=== PATIENT | male | born 1935 | race Caucasian/White ===

== ENCOUNTER 2016-10-30 11:04 | Inpatient (IN) | payer MEDICARE, OTHER ==
[~2016-10-30] VITALS: Ht 190.5 cm; Wt 82.2 kg
[~2016-10-30 11:04] MED LIST: ARIP2TAB PO; ATOR40TA PO; CALC400T6 PO; CHOL10002 PO; CIPR2.5D EACHEYE; CLON-364 PO; CLON0.5T PO; DILT180C53 PO; DILT360C10 PO; DULO30CA2 PO; DULO60CA7 PO; FERR325T20 PO; FISH1CAP PO; FURO-92 PO; FURO-93 PO; HYDR25TA6 PO; KETO5DRO3 LEFTEYE; LAMO150T3 PO; LAMO200T PO; LEVO125T5 PO; LISI5TAB7 PO; MULT-257 PO; POTA10TA90 PO; POTA20PA PO; SILD100T PO; TAMS-11 PO; TERA2CAP3 PO; WARF2.5T73 PO
[2016-10-30] MEDS ORDERED: SODIUM CHLORIDE FLUSH 10ML SYR IVF ONE (12:30)
[2016-10-30 12:37] LABS: ASPARTATE AMINO TRANSFERASE 9 U/L (15-37); BLOOD UREA NITROGEN 74 mg/dL (7-18)
[2016-10-30] MEDS ORDERED: SPIR25TA3 PO (12:42)
[2016-10-30] MEDS ORDERED: TIZA4CAP PO (12:42)
[2016-10-30] MEDS ORDERED: OXYC-229 PO (12:42)
[2016-10-30] MEDS ORDERED: RIVA15TA PO (12:42)
[2016-10-30 12:46] LABS: IS PT STATUS REG ER OR PRE ER? YES
[2016-10-30] MEDS ORDERED: SODIUM CHLORIDE FLUSH 10ML SYR IVF PRN (13:30)
[2016-10-30 15:27] VITALS: BP 117/68
[2016-10-30] MEDS ORDERED: SPIRONOLACTONE 25 MG TABLET PO PRN (15:30)
[2016-10-30] MEDS: OXYcodone/APAP 10/325MG TABLET PO SCH ×2 (15:44→20:22)
[2016-10-30] MEDS ORDERED: ACETAMINOPHEN 325 MG TABLET PO PRN (16:00)
[2016-10-30 16:24] LABS: ABG COLLECTION SITE RIGHT RADIAL
[2016-10-30 16:26] LABS: COLLATERAL CIRCULATION TESTING NORMAL
[2016-10-30 16:39] LABS: IS PT STATUS REG ER OR PRE ER? NO
[2016-10-30 19:50] VITALS: BP 130/78
[2016-10-30] MEDS: ATORVASTATIN 40 MG TABLET PO SCH (20:22)
[2016-10-30 21:44] LABS: IS PT STATUS REG ER OR PRE ER? NO
[2016-10-31 03:40] VITALS: BP 143/82
[2016-10-31] MEDS: LEVOTHYROXINE 125 MCG TABLET PO SCH (05:43)
[2016-10-31] MEDS: OXYcodone/APAP 10/325MG TABLET PO SCH ×2 (05:43→12:00)
[2016-10-31 06:26] LABS: ASPARTATE AMINO TRANSFERASE 32 U/L (15-37); BLOOD UREA NITROGEN 72 mg/dL (7-18)
[2016-10-31 08:24] VITALS: BP 140/85
[2016-10-31] MEDS: LAMOTRIGINE 200 MG TABLET PO SCH (08:48)
[2016-10-31] MEDS: DILTIAZEM CD 180 MG CAP.ER.24H PO SCH (08:49)
[2016-10-31] MEDS: MULTIVITAMIN 1 TABLET PO SCH (08:49)
[2016-10-31] MEDS: ARIPIPRAZOLE 2 MG TABLET PO SCH (08:50)
[2016-10-31] MEDS: CHOLECALCIFEROL 1,000 UNIT TABLET PO SCH (08:51)
[2016-10-31] MEDS: DULOXETINE 30 MG CAPSULE.DR PO SCH (08:51)
[2016-10-31] MEDS: RIVAROXABAN 15 MG TABLET PO SCH (08:51)
[2016-10-31] MEDS ORDERED: POTASSIUM CHLORIDE 20 MEQ PACKET PO SCH (09:00)
[2016-10-31 09:19] LABS: BLOOD UREA NITROGEN 66 mg/dL (7-18)
[2016-10-31 12:53] VITALS: BP 131/78
[2016-10-31] MEDS ORDERED: FUROSEMIDE 40 MG/4 ML IV ONE (13:00)
[2016-10-31 18:51] VITALS: BP 27/79
[2016-10-31] MEDS: OXYcodone/APAP 10/325MG TABLET PO PRN (22:47)
[2016-10-31] MEDS: ATORVASTATIN 40 MG TABLET PO SCH (22:47)
[2016-11-01 01:27] VITALS: BP 103/58
[2016-11-01 05:01] LABS: BLOOD UREA NITROGEN 60 mg/dL (7-18)
[2016-11-01] MEDS: LEVOTHYROXINE 125 MCG TABLET PO SCH (06:19)
[2016-11-01 06:52] LABS: PTH INTACT INTERPRETATION ** Comment **
[2016-11-01 07:24] LABS: PARATHYROID HORMONE INTACT 52.7 pg/mL (14-72)
[2016-11-01 07:38] VITALS: BP 138/84
[2016-11-01] MEDS: CHOLECALCIFEROL 1,000 UNIT TABLET PO SCH (07:58)
[2016-11-01] MEDS: ARIPIPRAZOLE 2 MG TABLET PO SCH (07:58)
[2016-11-01] MEDS: DILTIAZEM CD 180 MG CAP.ER.24H PO SCH (07:58)
[2016-11-01] MEDS: OXYcodone/APAP 10/325MG TABLET PO PRN (07:58)
[2016-11-01] MEDS: DULOXETINE 30 MG CAPSULE.DR PO SCH (07:58)
[2016-11-01] MEDS: RIVAROXABAN 15 MG TABLET PO SCH (07:58)
[2016-11-01] MEDS: LAMOTRIGINE 200 MG TABLET PO SCH (07:58)
[2016-11-01] MEDS: MULTIVITAMIN 1 TABLET PO SCH (07:58)
[2016-11-01] MEDS ORDERED: FUROSEMIDE 40 MG TABLET PO SCH (09:00)
[2016-11-01 12:20] VITALS: BP 126/80
== END 2016-11-01 17:39 | disposition home or self-care (01) | DRG 308 ==
LOC: ED 13:28 → EDIP 13:29 → ED 13:47 → 4WST 14:40
DX: I48.2 Chronic atrial fibrillation (principal); J81.0 Acute pulmonary edema; I26.99 Other pulmonary embolism without acute cor pulmonale; N18.4 Chronic kidney disease, stage 4 (severe); D68.69 Other thrombophilia; N17.9 Acute kidney failure, unspecified; J90 Pleural effusion, not elsewhere classified; I48.92 Unspecified atrial flutter; R91.8 Other nonspecific abnormal finding of lung field; E87.5 Hyperkalemia; D50.9 Iron deficiency anemia, unspecified; E03.9 Hypothyroidism, unspecified; E78.00 Pure hypercholesterolemia, unspecified; I12.9 Hypertensive chronic kidney disease with stage 1 through stage 4 chronic kidney disease, or unspecified chronic kidney disease; I71.4 Abdominal aortic aneurysm, without rupture; F31.9 Bipolar disorder, unspecified; F41.9 Anxiety disorder, unspecified; G47.00 Insomnia, unspecified; H35.30 Unspecified macular degeneration; I25.10 Atherosclerotic heart disease of native coronary artery without angina pectoris; I73.9 Peripheral vascular disease, unspecified; M19.90 Unspecified osteoarthritis, unspecified site; Z79.01 Long term (current) use of anticoagulants; Z80.0 Family history of malignant neoplasm of digestive organs; Z80.42 Family history of malignant neoplasm of prostate; Z82.3 Family history of stroke; Z85.46 Personal history of malignant neoplasm of prostate; Z85.820 Personal history of malignant melanoma of skin; Z86.73 Personal history of transient ischemic attack (TIA), and cerebral infarction without residual deficits; Z87.891 Personal history of nicotine dependence; Z95.5 Presence of coronary angioplasty implant and graft; Z99.3 Dependence on wheelchair; Z98.49 Cataract extraction status, unspecified eye; Z79.899 Other long term (current) drug therapy
CPT/HCPCS: 36415; 36600; 71010; 71250; 78582; 80048; 80053; 81003; 82310; 82803; 83735; 83880; 83970; 84100; 84443; 84484; 85025; 93005; 93306; J1940; A9540; A9558; C9898

== ENCOUNTER → 2016-12-28 | Outpatient (CLI) | payer MEDICARE, OTHER ==
[~2016-12-28] MED LIST changes: +OXYC-229 PO; +RIVA15TA PO; +SPIR25TA3 PO; +TIZA4CAP PO
== END | disposition home or self-care (01) ==
LOC: CFH 12:29
PROVIDERS: ATTEND Internal Medicine
DX: I51.7 Cardiomegaly (principal); I25.10 Atherosclerotic heart disease of native coronary artery without angina pectoris; N28.1 Cyst of kidney, acquired; G47.30 Sleep apnea, unspecified
CPT/HCPCS: 71250

== ENCOUNTER → 2017-07-08 | Outpatient (CLI) | payer MEDICARE, OTHER ==
[~2017-07-08] MED LIST changes: -ARIP2TAB PO; +ARIP2TAB2 PO; +FERR325T18 PO; -FERR325T20 PO; -LAMO200T PO; +LAMO200T2 PO; -OXYC-229 PO; +OXYC-307 PO; +POTA10TA6 PO; -POTA10TA90 PO
== END | disposition home or self-care (01) ==
LOC: CFH 14:45
PROVIDERS: ATTEND Nurse Practitioner
DX: R91.8 Other nonspecific abnormal finding of lung field (principal); J44.9 Chronic obstructive pulmonary disease, unspecified; I25.10 Atherosclerotic heart disease of native coronary artery without angina pectoris
CPT/HCPCS: 71250

== ENCOUNTER → 2017-08-25 | Outpatient (CLI) | payer MEDICARE, OTHER | END | disposition home or self-care (01) | LOC: PETCFH 13:43 | PROVIDERS: ATTEND Nurse Practitioner | DX: R91.8 Other nonspecific abnormal finding of lung field (principal); I71.4 Abdominal aortic aneurysm, without rupture; N28.1 Cyst of kidney, acquired | CPT/HCPCS: 78815; A9552 ==

== ENCOUNTER 2017-09-17 07:59 | Day surgery (SDC) | payer MEDICARE, OTHER ==
[~2017-09-17] VITALS: Ht 190.5 cm; Wt 94.7 kg
[2017-09-17] MEDS ORDERED: LACTATED RINGERS 1,000 ML IV SCH (08:28)
[2017-09-17] MEDS ORDERED: FENTANYL PF 100 MCG/2ML ONE (08:46)
[2017-09-17 08:47] VITALS: BP 138/72
[2017-09-17] MEDS ORDERED: ROCURONIUM 10MG/ML,5ML ONE (08:47)
[2017-09-17] MEDS ORDERED: SODIUM CHLORIDE 0.9% 1,000 ML IV SCH (09:00)
[2017-09-17 09:20] LABS: ALANINE AMINOTRANSFERASE 15 U/L (12-78); ALBUMIN 3.2 g/dL (3.4-5.0); ANION GAP 9 mmol/L (5-15); CALCIUM 8.7 mg/dL (8.5-10.1); CHLORIDE 110 mmol/L (98-107); CREATININE 2.05 mg/dL (0.7-1.3)
[2017-09-17 09:23] LABS: ALKALINE PHOSPHATASE 93 U/L (45-117); BILIRUBIN,TOTAL 0.4 mg/dL (0.2-1.0); TOTAL PROTEIN 7.6 g/dL (6.4-8.2)
[2017-09-17] MEDS ORDERED: OXYcodone 5 MG/5 ML ORAL.SOL UDC PO PRN (09:30)
[2017-09-17] MEDS ORDERED: ALBUTEROL/IPRATROPIUM 2.5MG/0.5MG, 3 ML NPPB PRN (09:30)
[2017-09-17] MEDS ORDERED: FENTANYL PF 100 MCG/2ML IV PRN (09:30)
[2017-09-17] MEDS ORDERED: PROMETHAZINE 12.5 MG SUPP PR PRN (09:30)
[2017-09-17] MEDS ORDERED: ONDANSETRON 2MG/ML, 2ML IVPush PRN (09:30)
[2017-09-17] MEDS ORDERED: ACETAMINOPHEN 325 MG TABLET PO PRN (09:30)
[2017-09-17] MEDS ORDERED: morphine SULFATE 10 MG/ML, 1ML IV PRN (09:30)
[2017-09-17] MEDS ORDERED: hydrALAzine 20 MG/ML, 1ML IV PRN (09:30)
[2017-09-17] MEDS ORDERED: ALBUTEROL SULFATE 2.5 MG/3 ML NPPB PRN (09:30)
[2017-09-17] MEDS ORDERED: LABETALOL 5MG/ML, 20ML IV PRN (09:30)
[2017-09-17] MEDS ORDERED: PROPOFOL 10 MG/ML, 20ML ONE (10:44)
[2017-09-17] MEDS ORDERED: DEXAMETHASONE 4 MG/ML, 1ML ONE (10:44)
[2017-09-17] MEDS ORDERED: ONDANSETRON 2MG/ML, 2ML ONE (11:19)
[2017-09-17] MEDS ORDERED: NEOSTIGMINE 1 MG/ML, 10ML ONE (11:24)
[2017-09-17] MEDS ORDERED: GLYCOPYRROLATE 0.4 MG/2 ML, 2ML ONE (11:24)
== END 2017-09-17 14:00 ==
LOC: OUT 07:59
PROVIDERS: ATTEND Internal Medicine
DX: J98.4 Other disorders of lung (principal); Z88.1 Allergy status to other antibiotic agents
CPT/HCPCS: 31625; 31627; 31629; 36415; 71045; 76001; 80053; 88172; 88173; 88177; 88305; 93005; J1100; J2405; J2704; J2710; J3010; J7030; 88341; 88342; G0461

== ENCOUNTER → 2017-09-23 | Outpatient (CLI) | payer MEDICARE, OTHER | LOC: ROC 08:32 | PROVIDERS: ATTEND Radiology Radiation Oncology | DX: Z08 Encounter for follow-up examination after completed treatment for malignant neoplasm (principal); R91.8 Other nonspecific abnormal finding of lung field; Z93.3 Colostomy status; Z85.46 Personal history of malignant neoplasm of prostate | CPT/HCPCS: G0463 ==

== ENCOUNTER → 2017-10-25 | Outpatient (CLI) | payer MEDICARE, OTHER | LOC: ROC 07:40 | PROVIDERS: ATTEND Radiology Radiation Oncology | DX: Z08 Encounter for follow-up examination after completed treatment for malignant neoplasm (principal); C34.31 Malignant neoplasm of lower lobe, right bronchus or lung; I10 Essential (primary) hypertension; Z85.46 Personal history of malignant neoplasm of prostate | CPT/HCPCS: G0463 ==

== ENCOUNTER → 2018-01-17 | Outpatient (CLI) | payer MEDICARE, OTHER ==
[~2018-01-17] MED LIST changes: -CLON-364 PO; +CLON0.5T11 PO; -SPIR25TA3 PO; +SPIR25TA5 PO
== END | disposition home or self-care (01) ==
LOC: CFH 09:19
PROVIDERS: ATTEND Radiology Radiation Oncology
DX: C34.31 Malignant neoplasm of lower lobe, right bronchus or lung (principal); R91.8 Other nonspecific abnormal finding of lung field; I25.10 Atherosclerotic heart disease of native coronary artery without angina pectoris
CPT/HCPCS: 71250

== ENCOUNTER → 2018-01-19 | Outpatient (CLI) | payer MEDICARE, OTHER | END | disposition home or self-care (01) | LOC: ROC 07:37 | PROVIDERS: ATTEND Radiology Radiation Oncology | DX: Z08 Encounter for follow-up examination after completed treatment for malignant neoplasm (principal); C34.31 Malignant neoplasm of lower lobe, right bronchus or lung | CPT/HCPCS: G0463 ==

== ENCOUNTER 2018-02-21 21:36 | Inpatient (IN) | payer MEDICARE, OTHER ==
[~2018-02-21] VITALS: Ht 188 cm; Wt 97.3 kg
[~2018-02-21 21:36] MED LIST changes: -POTA20PA PO; +POTA20PA31 PO
[2018-02-21] MEDS ORDERED: SODIUM CHLORIDE FLUSH 10ML SYR IVF ONE (22:00)
[2018-02-21 22:17] LABS: BASOPHILS # (AUTO) 0.05 x10^3/uL (0-0.1); BASOPHILS % (AUTO) 1 % (0-1); EOSINOPHILS # (AUTO) 0.09 x10^3/uL (0-0.4); EOSINOPHILS % (AUTO) 1 % (1-7); LYMPHOCYTES # (AUTO) 0.21 x10^3/uL (1-3.4); LYMPHOCYTES % (AUTO) 2 % (22-44); MD NO; MEAN CORPUSCULAR HGB CONC 32.1 g/dL (33.2-36.2); MEAN CORPUSCULAR VOLUME 90.2 fL (81-97); MEAN PLATELET VOLUME 7.9 fL (7.4-10.4); MONOCYTES # (AUTO) 1.15 x10^3/uL (0.2-0.8); MONOCYTES % (AUTO) 11 % (2-9); NEUTROPHILS # (AUTO) 8.95 x10^3/uL (1.8-6.8); NEUTROPHILS % (AUTO) 86 % (42-75); PLATELET COUNT 313 x10^3/uL (130-400); RED BLOOD COUNT 3.83 x10^6/uL (4.38-5.82)
[2018-02-21 22:28] LABS: ALANINE AMINOTRANSFERASE 14 U/L (12-78); ALBUMIN 2.7 g/dL (3.4-5.0); ANION GAP 14 mmol/L (5-15); CALCIUM 8.5 mg/dL (8.5-10.1); CHLORIDE 109 mmol/L (98-107); CREATININE 3.04 mg/dL (0.7-1.3); INTERNATIONAL NORMALIZED RATIO 1.03 (0.93-1.1); PROTHROMBIN TIME 10.7 Seconds (9.6-11.5)
[2018-02-21] MEDS ORDERED: CEFTRIAXONE 1,000 MG in SODIUM CHLORIDE 0.9% 50 ML IVPB ONE (22:30)
[2018-02-21] MEDS ORDERED: AZITHROMYCIN 500 MG in SODIUM CHLORIDE 0.9% 250 ML IVPB ONE (22:30)
[2018-02-21 22:32] LABS: ALKALINE PHOSPHATASE 100 U/L (45-117); BILIRUBIN,TOTAL 0.6 mg/dL (0.2-1.0); TOTAL PROTEIN 7.4 g/dL (6.4-8.2)
[2018-02-21 22:36] LABS: TROPONIN I 0.316 ng/mL (0.000-0.045)
[2018-02-21] MEDS ORDERED: CEFTRIAXONE PMX 1GM/50ML 50 ML ONE (22:42)
[2018-02-21] MEDS ORDERED: ASPIRIN 325 MG TABLET ONE (22:42)
[2018-02-21] MEDS ORDERED: SODIUM CHLORIDE 0.9% 1,000ML IVBOLUS ONE (23:00)
[2018-02-21] MEDS ORDERED: ASPIRIN 325 MG TABLET PO ONE (23:00)
[2018-02-22] MEDS ORDERED: hydrALAzine 20 MG/ML, 1ML IVPush PRN (00:30)
[2018-02-22] MEDS ORDERED: DOCUSATE 100 MG CAPSULE PO PRN (00:30)
[2018-02-22] MEDS ORDERED: TEMAZEPAM 15 MG CAPSULE PO PRN (00:30)
[2018-02-22] MEDS ORDERED: ACETAMINOPHEN 325 MG TABLET PO PRN (00:30)
[2018-02-22] MEDS ORDERED: GUAIFENESIN/DM 200-20MG, 10ML UDC PO PRN (00:30)
[2018-02-22] MEDS ORDERED: OXYcodone/APAP 10/325MG TABLET PO PRN (00:30)
[2018-02-22] MEDS ORDERED: ONDANSETRON ODT 4 MG PO PRN (00:30)
[2018-02-22] MEDS ORDERED: ALBUTEROL/IPRATROPIUM 2.5MG/0.5MG, 3 ML NPPB PRN ×2 (00:30→02:00)
[2018-02-22] MEDS ORDERED: SPIRONOLACTONE 25 MG TABLET PO PRN (00:30)
[2018-02-22 00:39] VITALS: BP 108/66
[2018-02-22 00:51] LABS: HEMOGLOBIN A1C 5.9 % (4.2-6.3)
[2018-02-22] MEDS: methylPREDNISolone SOD SUCC 40 MG/ML IVPush SCH ×2 (00:56→06:40)
[2018-02-22] MEDS: ATORVASTATIN 40 MG TABLET PO SCH ×2 (00:56→20:30)
[2018-02-22] MEDS ORDERED: CLON1TAB PO (01:02)
[2018-02-22] MEDS ORDERED: ALBUTEROL/IPRATROPIUM 2.5MG/0.5MG, 3 ML ONE (01:52)
[2018-02-22 02:31] VITALS: BP 100/60
[2018-02-22 04:00] VITALS: BP 122/69
[2018-02-22] MEDS: ALBUTEROL/IPRATROPIUM 2.5MG/0.5MG, 3 ML NPPB SCH ×2 (06:48→10:00)
[2018-02-22 07:48] LABS: ANION GAP 13 mmol/L (5-15); CALCIUM 8.3 mg/dL (8.5-10.1); CHLORIDE 110 mmol/L (98-107); CREATININE 3.04 mg/dL (0.7-1.3); FIO2 100 %
[2018-02-22] MEDS: INSULIN LISPRO 100 UNITS/ML, PEN SQ-INSULIN SCH ×4 (08:40→20:31)
[2018-02-22 08:47] LABS: MEAN CORPUSCULAR HEMOGLOBIN 29.6 pg (27.5-34.5); MEAN CORPUSCULAR HGB CONC 32.5 g/dL (33.2-36.2); MEAN CORPUSCULAR VOLUME 90.9 fL (81-97); MEAN PLATELET VOLUME 8.3 fL (7.4-10.4); PLATELET COUNT 282 x10^3/uL (130-400); RED BLOOD COUNT 3.57 x10^6/uL (4.38-5.82); RED CELL DISTRIBUTION WIDTH 19.1 % (9.4-14.8)
[2018-02-22] MEDS ORDERED: POTASSIUM CHLORIDE 20 MEQ TAB.ER.PRT PO SCH (09:00)
[2018-02-22] MEDS ORDERED: RIVAROXABAN 15 MG TABLET PO SCH (09:00)
[2018-02-22] MEDS: KETOROLAC OPHTH 0.5%, 5ML LEFTEYE SCH ×2 (09:00→21:05)
[2018-02-22] MEDS: OMEGA-3/FISH OIL CAPSULE PO SCH (09:00)
[2018-02-22] MEDS: ARIPIPRAZOLE 2 MG TABLET PO SCH (09:00)
[2018-02-22] MEDS: MULTIVITAMIN 1 TABLET PO SCH (09:00)
[2018-02-22] MEDS: LAMOTRIGINE 200 MG TABLET PO SCH (09:00)
[2018-02-22] MEDS: LEVOTHYROXINE 125 MCG TABLET PO SCH (09:00)
[2018-02-22] MEDS: DILTIAZEM CD 180 MG CAP.ER.24H PO SCH (09:00)
[2018-02-22] MEDS: DULOXETINE 30 MG CAPSULE.DR PO SCH (09:00)
[2018-02-22 09:53] LABS: BASOPHILS % (AUTO) 0 % (0-1); EOSINOPHILS % (AUTO) 0 % (1-7); LYMPHOCYTES # (AUTO) 0.22 x10^3/uL (1-3.4); LYMPHOCYTES % (AUTO) 2 % (22-44); MD SCAN; MONOCYTES # (AUTO) 0.27 x10^3/uL (0.2-0.8); MONOCYTES % (AUTO) 3 % (2-9); NEUTROPHILS # (AUTO) 9.28 x10^3/uL (1.8-6.8); NEUTROPHILS % (AUTO) 95 % (42-75)
[2018-02-22] MEDS ORDERED: FENTANYL PF 100 MCG/2ML ONE (11:14)
[2018-02-22] MEDS ORDERED: ROCURONIUM 10 MG/ML,10ML IVPush ONE (11:15)
[2018-02-22] MEDS ORDERED: MIDAZOLAM 1 MG/ML, 5ML IVPush ONE (11:15)
[2018-02-22] MEDS: ALBUTEROL/IPRATROPIUM 2.5MG/0.5MG, 3 ML INLINE SCH ×5 (12:30→22:52)
[2018-02-22] MEDS ORDERED: DEXTROSE 50%, 50ML SYRINGE IVPush PRN (12:30)
[2018-02-22] MEDS ORDERED: FENTANYL PF 100 MCG/2ML IVPush PRN (12:30)
[2018-02-22] MEDS ORDERED: GLUCAGON 1 MG IM PRN (12:30)
[2018-02-22] MEDS ORDERED: BISACODYL 10 MG SUPP PR PRN (12:30)
[2018-02-22] MEDS ORDERED: LACTULOSE 20 GM/30 ML UDC NG PRN (12:30)
[2018-02-22] MEDS ORDERED: SENNOSIDES 8.8 MG/5 ML ORAL SOL NG PRN (12:30)
[2018-02-22] MEDS ORDERED: SENNA/DOCUSATE TABLET NG PRN (12:30)
[2018-02-22] MEDS ORDERED: PHARMACY MAY ADJ FOR RENAL FX MC SCH (12:30)
[2018-02-22] MEDS ORDERED: DEXTROSE 4 GM TAB.CHEW PO PRN (12:30)
[2018-02-22] MEDS ORDERED: HEPARIN 5,000 UNITS/ML, 1ML SQ SCH (12:30)
[2018-02-22 16:14] LABS: MICROSCOPIC NOT IND
[2018-02-22] MEDS: PROPOFOL 100 ML IV PRN ×2 (16:25→20:35)
[2018-02-22] MEDS: SODIUM CHLORIDE 0.9% 1,000 ML IV SCH (16:25)
[2018-02-22 16:26] LABS: CULTURE INDICATED? NO
[2018-02-22] MEDS: methylPREDNISolone SOD SUCC 125 MG/2 ML IVPush SCH ×2 (17:25→23:55)
[2018-02-22] MEDS: FAMOTIDINE 20 MG/2 ML IV SCH (20:30)
[2018-02-22] MEDS: SODIUM CHLORIDE FLUSH 10ML SYR IVF SCH (20:30)
[2018-02-22] MEDS: AZITHROMYCIN 500 MG in SODIUM CHLORIDE 0.9% 250 ML IV SCH (22:34)
[2018-02-22] MEDS: LIDOCAINE-MPF 1%, 2ML ENDO PRN (22:52)
[2018-02-22] MEDS: CEFTRIAXONE 1,000 MG in SODIUM CHLORIDE 0.9% 50 ML IV SCH (23:51)
[2018-02-23] MEDS ORDERED: PROPOFOL 10 MG/ML, 100ML IV ONE
[2018-02-23] MEDS ORDERED: ROCURONIUM 10 MG/ML,10ML ONE
[2018-02-23] MEDS ORDERED: MIDAZOLAM 1 MG/ML, 5ML ONE
[2018-02-23] MEDS: ALBUTEROL/IPRATROPIUM 2.5MG/0.5MG, 3 ML INLINE SCH ×6 (02:28→22:23)
[2018-02-23] MEDS: SODIUM CHLORIDE 0.9% 1,000 ML IV SCH ×3 (03:22→22:03)
[2018-02-23] MEDS: PROPOFOL 100 ML IV PRN ×4 (03:23→23:39)
[2018-02-23 04:00] VITALS: BP 105/62
[2018-02-23 04:47] LABS: MEAN CORPUSCULAR HEMOGLOBIN 30.1 pg (27.5-34.5); MEAN CORPUSCULAR HGB CONC 33.1 g/dL (33.2-36.2); MEAN PLATELET VOLUME 8.2 fL (7.4-10.4); PLATELET COUNT 297 x10^3/uL (130-400); RED BLOOD COUNT 3.43 x10^6/uL (4.38-5.82); RED CELL DISTRIBUTION WIDTH 19.2 % (9.4-14.8)
[2018-02-23 04:50] LABS: ALANINE AMINOTRANSFERASE 28 U/L (12-78); ALBUMIN 2.5 g/dL (3.4-5.0); ANION GAP 12 mmol/L (5-15); CALCIUM 8.2 mg/dL (8.5-10.1); CHLORIDE 111 mmol/L (98-107); CREATININE 2.88 mg/dL (0.7-1.3)
[2018-02-23 04:52] LABS: ALKALINE PHOSPHATASE 151 U/L (45-117); BILIRUBIN,TOTAL 0.4 mg/dL (0.2-1.0); TOTAL PROTEIN 6.6 g/dL (6.4-8.2)
[2018-02-23 05:55] LABS: BASOPHILS % (AUTO) 0 % (0-1); EOSINOPHILS % (AUTO) 0 % (1-7); LYMPHOCYTES # (AUTO) 0.25 x10^3/uL (1-3.4); LYMPHOCYTES % (AUTO) 2 % (22-44); MD SCAN; MONOCYTES # (AUTO) 0.34 x10^3/uL (0.2-0.8); MONOCYTES % (AUTO) 3 % (2-9); NEUTROPHILS # (AUTO) 11.74 x10^3/uL (1.8-6.8); NEUTROPHILS % (AUTO) 95 % (42-75)
[2018-02-23] MEDS: methylPREDNISolone SOD SUCC 125 MG/2 ML IVPush SCH ×3 (06:16→17:50)
[2018-02-23] MEDS: INSULIN LISPRO 100 UNITS/ML, PEN SQ-INSULIN SCH ×3 (07:31→20:59)
[2018-02-23] MEDS ORDERED: HEPARIN 5,000 UNITS/ML, 1ML ONE (09:31)
[2018-02-23] MEDS ORDERED: HEPARIN 25,000 UNITS/500ML PMX 500 ML ONE (09:31)
[2018-02-23] MEDS: DULOXETINE 30 MG CAPSULE.DR PO SCH (09:38)
[2018-02-23] MEDS: DILTIAZEM CD 180 MG CAP.ER.24H PO SCH (09:38)
[2018-02-23] MEDS: OMEGA-3/FISH OIL CAPSULE PO SCH (09:38)
[2018-02-23] MEDS: LEVOTHYROXINE 125 MCG TABLET PO SCH (09:38)
[2018-02-23] MEDS: MULTIVITAMIN 1 TABLET PO SCH (09:38)
[2018-02-23] MEDS: KETOROLAC OPHTH 0.5%, 5ML LEFTEYE SCH ×2 (09:39→20:51)
[2018-02-23] MEDS: LAMOTRIGINE 200 MG TABLET PO SCH (09:48)
[2018-02-23] MEDS: SODIUM CHLORIDE FLUSH 10ML SYR IVF SCH ×2 (09:49→20:51)
[2018-02-23] MEDS: ARIPIPRAZOLE 2 MG TABLET PO SCH (11:08)
[2018-02-23] MEDS: HEPARIN 25,000 UNITS/500ML PMX 500 ML IV PRN (11:18)
[2018-02-23] MEDS ORDERED: HEPARIN 5,000 UNITS/ML, 1ML IV ONE (18:00)
[2018-02-23] MEDS: FAMOTIDINE 20 MG/2 ML IV SCH (20:50)
[2018-02-23] MEDS: ATORVASTATIN 40 MG TABLET PO SCH (20:51)
[2018-02-23] MEDS: LIDOCAINE-MPF 1%, 2ML ENDO PRN (20:54)
[2018-02-23] MEDS: AZITHROMYCIN 500 MG in SODIUM CHLORIDE 0.9% 250 ML IV SCH (22:03)
[2018-02-23] MEDS: CEFTRIAXONE 1,000 MG in SODIUM CHLORIDE 0.9% 50 ML IV SCH (23:38)
[2018-02-24] MEDS: methylPREDNISolone SOD SUCC 125 MG/2 ML IVPush SCH ×4 (01:25→17:01)
[2018-02-24] MEDS: HEPARIN 5,000 UNITS/ML, 1ML IV PRN ×3 (02:31→17:01)
[2018-02-24] MEDS: INSULIN LISPRO 100 UNITS/ML, PEN SQ-INSULIN SCH ×4 (02:36→21:07)
[2018-02-24] MEDS: ALBUTEROL/IPRATROPIUM 2.5MG/0.5MG, 3 ML INLINE SCH ×6 (02:39→22:45)
[2018-02-24 04:09] VITALS: BP 106/63
[2018-02-24 04:54] LABS: MEAN CORPUSCULAR HEMOGLOBIN 29.8 pg (27.5-34.5); MEAN CORPUSCULAR HGB CONC 33.1 g/dL (33.2-36.2); MEAN CORPUSCULAR VOLUME 89.9 fL (81-97); MEAN PLATELET VOLUME 7.9 fL (7.4-10.4); PLATELET COUNT 267 x10^3/uL (130-400); RED CELL DISTRIBUTION WIDTH 19.7 % (9.4-14.8)
[2018-02-24 05:04] LABS: ANION GAP 10 mmol/L (5-15); CALCIUM 7.9 mg/dL (8.5-10.1); CHLORIDE 113 mmol/L (98-107)
[2018-02-24] MEDS: PROPOFOL 100 ML IV PRN ×3 (05:57→23:15)
[2018-02-24 06:03] LABS: BASOPHILS % (AUTO) 0 % (0-1); EOSINOPHILS % (AUTO) 0 % (1-7); LYMPHOCYTES # (AUTO) 0.25 x10^3/uL (1-3.4); LYMPHOCYTES % (AUTO) 2 % (22-44); MD SCAN; MONOCYTES # (AUTO) 0.26 x10^3/uL (0.2-0.8); MONOCYTES % (AUTO) 3 % (2-9); NEUTROPHILS # (AUTO) 9.72 x10^3/uL (1.8-6.8); NEUTROPHILS % (AUTO) 95 % (42-75)
[2018-02-24] MEDS: SODIUM CHLORIDE 0.9% 1,000 ML IV SCH ×2 (07:30→17:01)
[2018-02-24] MEDS ORDERED: METOPROLOL TARTRATE 25 MG TABLET NG SCH (09:00)
[2018-02-24] MEDS: SODIUM CHLORIDE FLUSH 10ML SYR IVF SCH ×2 (09:02→20:49)
[2018-02-24] MEDS: DULOXETINE 30 MG CAPSULE.DR PO SCH (09:02)
[2018-02-24] MEDS: DILTIAZEM CD 180 MG CAP.ER.24H PO SCH (09:02)
[2018-02-24] MEDS: MULTIVITAMIN 1 TABLET PO SCH (09:03)
[2018-02-24] MEDS: OMEGA-3/FISH OIL CAPSULE PO SCH (09:03)
[2018-02-24] MEDS: LEVOTHYROXINE 125 MCG TABLET PO SCH (09:03)
[2018-02-24] MEDS: KETOROLAC OPHTH 0.5%, 5ML LEFTEYE SCH ×2 (09:04→20:49)
[2018-02-24] MEDS ORDERED: METOPROLOL TARTRATE 25 MG TABLET ONE (09:07)
[2018-02-24] MEDS: QUETIAPINE 25MG TABLET PO SCH ×2 (09:30→20:49)
[2018-02-24] MEDS: HEPARIN 25,000 UNITS/500ML PMX 500 ML IV PRN (10:14)
[2018-02-24] MEDS: ARIPIPRAZOLE 2 MG TABLET PO SCH (10:23)
[2018-02-24] MEDS: LAMOTRIGINE 200 MG TABLET PO SCH (10:23)
[2018-02-24] MEDS ORDERED: DILTIAZEM 30 MG TABLET ONE (13:26)
[2018-02-24] MEDS: DILTIAZEM 90 MG TABLET PO SCH ×3 (13:28→20:49)
[2018-02-24] MEDS: FAMOTIDINE 20 MG/2 ML IV SCH (20:45)
[2018-02-24] MEDS: ATORVASTATIN 40 MG TABLET PO SCH (20:46)
[2018-02-24] MEDS: AZITHROMYCIN 500 MG in SODIUM CHLORIDE 0.9% 250 ML IV SCH (22:01)
[2018-02-24] MEDS: CEFTRIAXONE 1,000 MG in SODIUM CHLORIDE 0.9% 50 ML IV SCH (23:13)
[2018-02-25] MEDS: methylPREDNISolone SOD SUCC 125 MG/2 ML IVPush SCH ×3 (00:08→11:59)
[2018-02-25] MEDS: HEPARIN 5,000 UNITS/ML, 1ML IV PRN (00:10)
[2018-02-25] MEDS: ALBUTEROL/IPRATROPIUM 2.5MG/0.5MG, 3 ML INLINE SCH ×5 (02:25→19:45)
[2018-02-25] MEDS: INSULIN LISPRO 100 UNITS/ML, PEN SQ-INSULIN SCH ×3 (03:49→15:09)
[2018-02-25] MEDS: HEPARIN 25,000 UNITS/500ML PMX 500 ML IV PRN (03:58)
[2018-02-25 04:00] VITALS: BP 123/71
[2018-02-25 04:17] LABS: BASOPHILS % (AUTO) 0 % (0-1); EOSINOPHILS # (AUTO) 0.01 x10^3/uL (0-0.4); EOSINOPHILS % (AUTO) 0 % (1-7); LYMPHOCYTES # (AUTO) 0.36 x10^3/uL (1-3.4); LYMPHOCYTES % (AUTO) 3 % (22-44); MD NO; MEAN CORPUSCULAR HEMOGLOBIN 30.1 pg (27.5-34.5); MEAN CORPUSCULAR HGB CONC 32.9 g/dL (33.2-36.2); MEAN CORPUSCULAR VOLUME 91.4 fL (81-97); MEAN PLATELET VOLUME 8.6 fL (7.4-10.4); MONOCYTES # (AUTO) 0.48 x10^3/uL (0.2-0.8); MONOCYTES % (AUTO) 4 % (2-9); NEUTROPHILS # (AUTO) 10.89 x10^3/uL (1.8-6.8); NEUTROPHILS % (AUTO) 93 % (42-75); PLATELET COUNT 265 x10^3/uL (130-400); RED BLOOD COUNT 3.42 x10^6/uL (4.38-5.82); RED CELL DISTRIBUTION WIDTH 19.5 % (9.4-14.8)
[2018-02-25 04:26] LABS: ANION GAP 11 mmol/L (5-15); CALCIUM 7.6 mg/dL (8.5-10.1); CHLORIDE 114 mmol/L (98-107); CREATININE 2.49 mg/dL (0.7-1.3); TRIGLYCERIDES 84 mg/dL (50-200)
[2018-02-25] MEDS: DILTIAZEM 90 MG TABLET PO SCH ×3 (06:25→16:20)
[2018-02-25] MEDS ORDERED: INSULIN GLARGINE 100 UNITS/ML, PEN SQ-INSULIN SCH ×2 (09:00→21:00)
[2018-02-25] MEDS: QUETIAPINE 25MG TABLET PO SCH (09:00)
[2018-02-25] MEDS ORDERED: CLOPIDOGREL 75 MG TABLET PO SCH (09:30)
[2018-02-25] MEDS ORDERED: ASPIRIN 81 MG TABLET CHEW PO ONE (09:30)
[2018-02-25] MEDS: KETOROLAC OPHTH 0.5%, 5ML LEFTEYE SCH (09:41)
[2018-02-25] MEDS: LAMOTRIGINE 200 MG TABLET PO SCH (09:42)
[2018-02-25] MEDS: LEVOTHYROXINE 125 MCG TABLET PO SCH (09:42)
[2018-02-25] MEDS: OMEGA-3/FISH OIL CAPSULE PO SCH (09:42)
[2018-02-25] MEDS: MULTIVITAMIN 1 TABLET PO SCH (09:43)
[2018-02-25] MEDS: SODIUM CHLORIDE FLUSH 10ML SYR IVF SCH (09:51)
[2018-02-25] MEDS ORDERED: INSULIN LISPRO 100 UNITS/ML, PEN SQ-INSULIN ONE (11:00)
[2018-02-25] MEDS ORDERED: ALBUMIN HUMAN 25% 50 ML IV ONE (16:30)
[2018-02-25] MEDS ORDERED: FUROSEMIDE 20 MG/2 ML IV ONE (16:30)
[2018-02-25] MEDS: PROPOFOL 100 ML IV PRN (16:50)
[2018-02-25] MEDS ORDERED: SODIUM CHLORIDE 0.9%, 500ML IVBOLUS ONE (20:00)
[2018-02-25] MEDS ORDERED: methylPREDNISolone SOD SUCC 125 MG/2 ML IVPush SCH (20:30)
== END 2018-02-26 03:41 | disposition expired | DRG 208 ==
LOC: ED 23:57 → EDIP 02-22 00:05 → 5SO 02-22 00:15 → CSU 02-22 01:39 → CCU 02-23 03:37
PROVIDERS: ADMIT Hospitalist; ATTEND Hospitalist
PROC: 0BH17EZ Insertion of Endotracheal Airway into Trachea, Via Natural or Artificial Opening (ICD-10-PCS; principal; 2018-02-22)
PROC: 5A1945Z Respiratory Ventilation, 24-96 Consecutive Hours (ICD-10-PCS; 2018-02-22)
DX: J96.01 Acute respiratory failure with hypoxia (principal); I21.9 Acute myocardial infarction, unspecified; J15.9 Unspecified bacterial pneumonia; I50.31 Acute diastolic (congestive) heart failure; I13.0 Hypertensive heart and chronic kidney disease with heart failure and stage 1 through stage 4 chronic kidney disease, or unspecified chronic kidney disease; N18.4 Chronic kidney disease, stage 4 (severe); I48.2 Chronic atrial fibrillation; F32.9 Major depressive disorder, single episode, unspecified; H35.30 Unspecified macular degeneration; D50.9 Iron deficiency anemia, unspecified; I25.10 Atherosclerotic heart disease of native coronary artery without angina pectoris; I73.9 Peripheral vascular disease, unspecified; E03.9 Hypothyroidism, unspecified; Z86.73 Personal history of transient ischemic attack (TIA), and cerebral infarction without residual deficits; Z98.61 Coronary angioplasty status; G47.30 Sleep apnea, unspecified; Z85.820 Personal history of malignant melanoma of skin; Z85.46 Personal history of malignant neoplasm of prostate; Z85.118 Personal history of other malignant neoplasm of bronchus and lung; R53.81 Other malaise; Z99.3 Dependence on wheelchair; Z98.49 Cataract extraction status, unspecified eye; Z98.890 Other specified postprocedural states; Z80.42 Family history of malignant neoplasm of prostate; Z80.0 Family history of malignant neoplasm of digestive organs; Z87.891 Personal history of nicotine dependence; Z72.89 Other problems related to lifestyle; Z88.8 Allergy status to other drugs, medicaments and biological substances
CPT/HCPCS: 31624; 36415; 36600; 71045; 80048; 80053; 81003; 82803; 82962; 83036; 83605; 83735; 83880; 84100; 84478; 84484; 85025; 85379; 85520; 85610; 85730; 87015; 87040; 87070; 87081; 87102; 87116; 87205; 87206; 93005; 94002; 94003; 94640; 96365; 96375; C8929; G0378; J0456; J0696; J1644; J2250; J2704; J3490; J7620; P9047; J1815; J1940; J2920; J2930; J7030; J7050; S0028